=== PATIENT | male | born 1995 | race Caucasian/White ===

== ENCOUNTER 2019-08-02 14:12 | Observation (INO) | payer BC, OTHER ==
[~2019-08-02] VITALS: Ht 172.7 cm; Wt 129.2 kg
[~2019-08-02 14:12] MED LIST: ALBU8.5H8 INH; CETI10TA19 PO; HYDR-3601 PO
[2019-08-02] MEDS ORDERED: ONDANSETRON 4 MG INJ IV PRN (23:00)
[2019-08-02] MEDS ORDERED: ACETAMINOPHEN 325 MG TAB PO PRN (23:00)
[2019-08-02] MEDS ORDERED: ALBUTEROL HFA 8 GM INHALER INH PRN (23:45)
[2019-08-03] VITALS: Ht 172.7 cm; Wt 129.2 kg
[2019-08-03] MEDS ORDERED: MAGNESIUM HYDROXIDE 30ML CUP PO PRN
[2019-08-03] MEDS ORDERED: BISACODYL 10 MG SUPP PR PRN
[2019-08-03] MEDS ORDERED: DOCUSATE SODIUM 100 MG CAP PO PRN
[2019-08-03] MEDS ORDERED: NACL 0.9% 3 ML SYG IV SCH
[2019-08-03] MEDS ORDERED: ONDANSETRON 4 MG INJ IV PRN
[2019-08-03] MEDS ORDERED: ACETAMINOPHEN 325 MG TAB PO PRN
[2019-08-03] MEDS ORDERED: ALBUTEROL HFA 8 GM INHALER INH PRN
[2019-08-03 01:56] VITALS: BP 132/80; PULSE 69; RESP 18
[2019-08-03 07:31] VITALS: BP 143/84; PULSE 79; RESP 15
[2019-08-03] MEDS: HYDROCODONE/APAP (5/325) TAB PO PRN ×2 (09:58→16:39)
[2019-08-03 13:32] VITALS: BP 139/81; PULSE 88; RESP 16
== END 2019-08-03 17:05 | disposition home or self-care (01) ==
LOC: E/R 14:12 → MS3 22:34
PROVIDERS: ADMIT Internal Medicine; ATTEND Internal Medicine
DX: S22.089A Unspecified fracture of T11-T12 vertebra, initial encounter for closed fracture (principal); S32.011A Stable burst fracture of first lumbar vertebra, initial encounter for closed fracture; S06.0X9A Concussion with loss of consciousness of unspecified duration, initial encounter; J45.909 Unspecified asthma, uncomplicated; W11.XXXA Fall on and from ladder, initial encounter
CPT/HCPCS: 36415; 70450; 71260; 72125; 72128; 72131; 72146; 72148; 74177; 80048; 80307; 82550; 83735; 85025; 85610; 85730; 99285; G0378; L0464